=== PATIENT | male | born 1990 | race Caucasian/White ===

== ENCOUNTER → 2023-04-12 | Outpatient (CLI) | payer OTHER ==
--- NOTE | 2023-04-12 15:42 | DIREP ---
PROCEDURE:XRAY KNEE 2 VWS-LT COMPARISON:None. INDICATIONS:Z00.00 HISTORY AND PHYSICAL EVALUATION FINDINGS: BONES:There is a medial approach metallic anchor in the left tibial metaphysis stabilizing a healing tibial plateau fracture. The fracture plane is still visible; however, callus formation is present. JOINTS:Spurring of the femoral condyles and tibial plateau. SOFT TISSUES:Normal. OTHER:No additional findings. CONCLUSION:Healing tibial plateau fracture as above Dictated by: Nolan Stevenson M.D. on 04/12/2023 at 03:40 PM
== END | disposition home or self-care (01) ==
LOC: RAD 13:27
PROVIDERS: ATTEND Nurse Practitioner
DX: S82.142D Displaced bicondylar fracture of left tibia, subsequent encounter for closed fracture with routine healing (principal); Z00.00 Encounter for general adult medical examination without abnormal findings; X58.XXXD Exposure to other specified factors, subsequent encounter
CPT/HCPCS: 73560-LT